=== PATIENT | male | born 1970 | race Caucasian/White ===

== ENCOUNTER → 2024-07-25 14:11 | Outpatient (REF) | payer OTHER, SELFPAY | LOC: RAD 14:11 | PROVIDERS: ATTENDING PHYSICIAN Ophthalmology; FAMILY PHYSICIAN Student in an Organized Health Care Education/Training Program | DX: H35.82 Retinal ischemia (principal) | CPT/HCPCS: 93880 ==

== ENCOUNTER → 2024-09-15 09:32 | Outpatient (REF) | payer OTHER, SELFPAY | LOC: RAD 09:32 | PROVIDERS: ATTENDING PHYSICIAN Surgery Vascular Surgery; FAMILY PHYSICIAN Student in an Organized Health Care Education/Training Program | DX: I65.23 Occlusion and stenosis of bilateral carotid arteries (principal) | CPT/HCPCS: 70496; 70498; Q9967 ==

== ENCOUNTER → 2024-11-24 08:49 | Outpatient (REF) | payer OTHER, SELFPAY | LOC: HWRCS 08:49 | PROVIDERS: ATTENDING PHYSICIAN Internal Medicine Cardiovascular Disease; FAMILY PHYSICIAN Student in an Organized Health Care Education/Training Program | DX: I65.22 Occlusion and stenosis of left carotid artery (principal); E78.00 Pure hypercholesterolemia, unspecified; I74.9 Embolism and thrombosis of unspecified artery; F17.200 Nicotine dependence, unspecified, uncomplicated | CPT/HCPCS: 93306 ==

== ENCOUNTER 2024-12-02 01:14 | Observation (INO) | payer OTHER, SELFPAY ==
[2024-12-01 19:50] VITALS: BP 149/99
[2024-12-01 20:04] VITALS: BP 171/100
[2024-12-01 20:22] LABS: % Basophils 0.6 % (0-2); % Eosinophils 2.9 % (0-6); % Immature Granulocytes 0.4 % (0-0.5); % Lymphocytes 24.4 % (20.5-51.1); % Monocytes 5.8 % (1.7-9.3); % Neutrophils 65.9 % (42.2-75.2); Absolute Basophils 0.1 10^3/uL (0-0.2); Absolute Eosinophils 0.4 10^3/uL (0-0.7); Absolute Immature Granulocytes 0.1 10^3/uL (0-0.05); Absolute Lymphocytes 3.3 10^3/uL (1.2-3.4); Absolute Monocytes 0.8 10^3/uL (0.1-0.6); Absolute Neutrophils 8.8 10^3/uL (1.4-6.5); Hematocrit 43.7 % (39.0-52.0); Hemoglobin 15.2 g/dL (13.0-18.0); Mean Corp Hgb Conc. 34.8 g/dL (33.0-37.0); Mean Corpuscular Hgb 31.5 pg (27.0-31.0); Mean Corpuscular Volume 90.7 fL (80.0-94.0); Mean Platelet Volume 9.6 fL (7.4-10.4); Nucleated Red Blood Cells % 0 % (-); Platelet Count 270 10^3/uL (130-400); Red Blood Cell Count 4.82 10^6/uL (4.70-6.10); Red Cell Dist. Width 12.1 % (11.5-14.5); White Blood Cell Count 13.4 10^3/uL (4.8-10.8)
[2024-12-01 20:33] LABS: INR 0.98; PT 13.3 Sec (11.4-14.6)
[2024-12-01 20:34] LABS: APTT 26.5 Sec (23.4-35.0)
[2024-12-01 20:45] LABS: Troponin I 0.013 ng/ml
[2024-12-01 20:48] LABS: ALT (SGPT) 27 U/L (0-50); AST (SGOT) 27 U/L (17-59); Albumin 4.9 g/dl (3.5-5.0); Alkaline Phosphatase 101 U/L (38-126); Blood Urea Nitrogen 15 mg/dl (9-20); Calcium 9.2 mg/dl (8.4-10.2); Carbon Dioxide 24 mmol/L (22-30); Chloride 102 mmol/L (98-107); Estimated Creatinine Clearance 107 ml/min; Glucose 123 mg/dl (70-99); Sodium 136 mmol/L (135-145); Total Bilirubin 0.7 mg/dl (0.2-1.3); Total Protein 7.6 g/dl (6.3-8.2); eGFR > 60.00
[2024-12-01 21:00] VITALS: BP 147/89
[2024-12-01 22:00] VITALS: BP 148/87
[2024-12-01 22:23] VITALS: BP 149/84
--- NOTE | 2024-12-01 22:44 | ED.CVA ---
History of Present Illness
General
Chief Complaint: CVA/TIA Symptoms
Time Seen by Provider: 12/01/24 20:02
Onset of Stroke Symptoms
Onset of symptoms known: Yes
Date of onset of symptoms: 12/01/24
Time of onset of symptoms: 19:00
History of Present Illness
History of Present Illness:
54-year-old male with prior history of suspected TIA presenting for complete motor loss in the left lower extremity prior to arrival. Patient reports he was sitting on the couch and his leg went ' 'for a few minutes. He was unable to lift his
leg up. Symptoms since resolved. Reports that he had similar symptoms about a year ago with his right upper extremity, had a relatively unremarkable workup with the exception of blockage to the left carotid. Denies any present numbness or
tingling to his leg. Denies visual changes. Denies any changes in speech. Denies any recent fall or injury. Denies additional acute medical complaints
Past History
Past History
ED Past Medical History: None
ED Past Surgical History: None
Social History
Tobacco: Non-smoker
Personal:
Phy Exam
Physical Exam
Physical Exam:
General: Well-appearing, no clinical signs of dehydration, nontoxic and in no acute distress
HEENT: protecting airway
Neck: appears supple
CV: Normal heart rate, regular rhythm
Resp: No accessory muscle use, no increased work of breathing, lungs clear to auscultation bilaterally
Abd: Soft and non-distended, no tenderness to palpation
Extremities: No deformities, no swelling, no erythema. Palpable pulses intact to lower extremity. Sensation intact.
Neuro: alert, no focal neurologic deficit
: deferred
Rectal: deferred
Psych: Normal affect
Skin: Intact
NIH Stroke Score
Level of Consciousness: 0 - Alert
LOC questions: 0-Answers both correctly
LOC Commands: 0-Performs both correctly
Best Gaze: 0-Normal
Visual Romero: 0=Normal, no visual loss
Facial palsy: 0=Normal, symmetrical
Motor - Right Arm: 0=No drift 10 seconds
Motor - Left Arm: 0=No drift 10 seconds
Motor - Right Le-No drift 5 seconds
Motor - Left Le-No drift 5 seconds
Limb Ataxia: 0-Absent
Sensation: 0-Normal
Best Language: 0-No aphasia
Dysarthria: 0-Normal
Extinction and Inattention: 0-No abnormality
Total Score:: 0
Course
Orders/Labs/Results
Orders:
Orders
12/01/24 20:09
Cardiac Monitoring- Treatment ONCE
IV Insert/Care/Rem.- Treatment PRN
Complete Blood Count/With Diff Urgent
Comprehensive Metabolic Panel Urgent
PTT Urgent
Prothrombin Time Urgent
Troponin I Urgent
Vital Signs As Directed
Frequency: Other
Weight As Directed
Frequency: Once
Comment: ZERO STRETCHER SCALE FOR ACCURATE WEIGHT
12/01/24 21:23
CT Head & Neck Angio W/wo IV Urgent
Comment:
Reason For Exam: L-leg weaknes, hx carotid blockage
12/01/24 22:52
Electrocardiogram (*1) Stat
Reason for Study: Other
Other Reason for Exam: stroke
12/01/24 23:02
Aspirin 325 mg PO NOW STA
Clopidogrel Bisulfate [Plavix] 75 mg PO NOW STA
12/01/24 23:08
EKG- Treatment ONCE
12/02/24 00:50
Admit/Transfer Patient As Directed
Co-Sign Provider:
Level of Care: Observation services
Assign to:: Telemetry
Physician / Group: [place]
Diagnosis: LLE Weakness
Reason for Telemetry: CVA/TIA
Date to Stop Telemetry: 12/05/24
Time to Stop Telemetry: 11:00
PRN Pain Medication Management As Directed
May give lesser potent ordered pain med per pt: Yes
preference::
Protocol:: Medication orders for pain may be administered in a
manner that supports deferring to patient preference
when the pt is:
- Requesting an ordered lesser potent pain medication.
Least to most potent pain medications are defined
as: acetaminophen < NSAID < tramadol < opioids
(morphine, oxycodone, hydromorphone).
- Requesting a lesser dose of the same medication IF
ORDERED.
- Requesting a less intrusive route of administration
if both routes are prescribed by the provider (PO <
IV).
12/02/24 00:51
Code Status As Directed
Resuscitation Status: Full Code
12/02/24 01:32
Acetaminophen [Tylenol] 650 mg PO Q4HPRN PRN
12/02/24 01:32
Consult Notification Routine
Specialty to Notify: Neurology
Date consulting provider notified: 12/02/24
Time consulting provider notified: 08:18
Notified:: Provider
Comment: LILA KYLE
NEUROLOGY CONSULT Routine
Consulting Provider: Dionisio Kyle
Was physician already notified: No
Reason for consult: LLE Weakness
Activity As Directed
Activity Level: Ambulate
With Assistance
EKG with chest pain [ECG as needed] As Directed
ECG as needed for:: Chest Pain
I/O [Intake/ Output] As Directed
Frequency: Per unit guidelines
Neurological Checks As Directed
Frequency: q4h
Orthostatic Vital Signs As Directed
Orthostatic VS Frequency: BID
Pneumatic Compression Sleeves As Directed
Type: Knee high
Vital Signs As Directed
Frequency: Per unit guidelines
Oxygen Therapy [O2 Therapy] [RESP] Routine
Titrate/Wean O2 to maintain O2 sat greater than (%): 94
Ot Eval And Treat Routine
PT Consult [Pt Eval And Treat] Routine
Activity Level: Ambulate
With Assistance
DX Deep Vein Thrombosis Video Routine
12/02/24 05:19
Basic Metabolic Panel IN AM
Cardiovascular Evaluation IN AM
Complete Blood Count/No Diff IN AM
Glycohemoglobin (HgbA1c) Routine
TSH Reflex To Free T4 Routine
12/02/24 Breakfast
Regular
At Your Request: Full Participation
Does patient need a safe tray?: No
MR Brain Without Contrast IN AM
Comment:
Reason For Exam: CVA / TIA
Recent pill cam endoscopy?: No
MR Cervical Spine Without IN AM
Comment:
Reason For Exam: Cervical Stenosis
Recent pill cam endoscopy?: No
12/02/24 08:00
Aspirin Chewable [Low Strength Aspirin] 81 mg PO DAILY
Clopidogrel Bisulfate [Plavix] 75 mg PO DAILY
12/02/24 22:00
Atorvastatin [Lipitor] 20 mg PO HS
12/05/24 11:00
DC Protocol for Telemetry ONCE
Abnormal Lab Results
12/01/24
20:09
WBC 13.4 H 10^3/uL
(4.8-10.8)
MCH 31.5 H pg
(27.0-31.0)
Abs Immat Gran (auto) 0.1 H 10^3/uL
(0-0.05)
Absolute Neuts (auto) 8.8 H 10^3/uL
(1.4-6.5)
Absolute Monos (auto) 0.8 H 10^3/uL
(0.1-0.6)
Glucose 123 H mg/dl
(70-99)
12/01/24 20:09
12/01/24 20:09
Vital Signs
Initial and Last Documented VS:
Initial Vital Signs
Temp Pulse Resp BP Pulse Ox
98.5 F 93 18 149/99 100
12/01/24 19:50 12/01/24 19:50 12/01/24 19:50 12/01/24 19:50 12/01/24 19:50
Last Documented Vital Signs
Temp Pulse Resp BP Pulse Ox
97.7 F 72 19 130/72 98
12/02/24 10:45 12/02/24 10:45 12/02/24 10:45 12/02/24 10:45 12/02/24 10:45
MDM/Problems Addressed
MDM/Problems Addressed:
54-year-old male presenting for complete loss of motor to left lower extremity, which last for few minutes. Symptoms since resolved. Vital signs arrival significant for mild hypertension.
On exam, patient is resting comfortably, no acute distress. Patient evaluated initially upon arrival into the emergency department. In a stroke scale of 0. Concern for TIA given motor loss of left lower extremity, unilateral. Notes history of
carotid occlusion in the past. Did review ultrasound from 07/25/2024, shows occluded left internal carotid. Unclear if this is contributing to patient's symptoms. No indication for tPA given resolution of symptoms, no significant present
neurologic deficit. No neurovascular compromise to the left lower extremity without concern for claudication. No tenderness to the back without concern for central spinal canal issue. Plan for CT/CTA given concern for vascular issues. Will
obtain laboratory analysis and continue to closely monitor.
23:00 -CT brain and CT angio without findings of acute infarct. There is mention of known complete occlusion of the left internal carotid artery with collaterals, as well as additional atherosclerotic findings. Given neurologic symptoms with
vascular findings, feel patient warrants admission for MRI, initiation of aspirin and Plavix, possible vascular consultation. CT neck noted to have cervical disc disease. Patient without any neck pain or upper extremity symptoms. Less suspicious for
acute spinal etiology to symptoms.
*EKG
Interpreted by ED Provider?: Yes
EKG Intrepretation Date: 12/01/24
EKG Intrepretation Time: 23:14
Interpretation: abnormal
Comparison EKG: no comparison EKG present
Heart Rate: 74
Rate: normal
Rhythm: sinus
[place]: normal axis
Interval: normal interval
QRS Pattern: normal QRS
Ischemia: non-specific ST changes
*Critical Care Note
Total Time (30-74mins, 75-104mins- exclusive of procedures): Not Applicable
ED Attending Note
-
Portions of this chart may have been created with voice recognition software.� Occasional wrong word or��sound alike� substitutions may have occurred due to the inherent limitations of voice recognition software.
Discharge Plan
Departure
Patient Disposition: Admit
Date of Disposition: 12/01/24
Time of Disposition: 23:09
Presentation/result/management discussed w/ accepting MD/DO: Hospitalist
Condition: Fair
Discharge Problem:
Stroke-like symptoms, TIA (transient ischemic attack)
Interventions
Interventions:
*Risk Screen - Suicide Last Done: 12/02/24 01:42
*General Assessment Last Done: 12/01/24 19:50
*Neglect/Abuse Screening Last Done: 12/02/24 01:25
ED- Fall Risk Assessment Last Done: 12/01/24 20:10
*ED COVID-19 Vaccine History Last Done: 12/01/24 19:50
*Nursing Disposition Last Done: 12/02/24 01:25
ED- Pulmonary Assessment Last Done: 12/01/24 20:10
ED- Neurological Assessment Last Done: 12/01/24 20:07
ED- Cardiac Assessment Last Done: 12/01/24 20:10
ED Swallowing Screen Last Done: 12/01/24 20:10
Discharge Date and Time
Discharge Date/Time: 12/02/24 01:25
[2024-12-01 23:00] VITALS: BP 154/87
[2024-12-01] MEDS: ASPIRIN 325 MG PO (23:19)
[2024-12-01] MEDS: PLAVIX 75 MG PO (23:19)
[2024-12-02] VITALS (10 sets, daily range): BP systolic 112–176; BP diastolic 70–96; PULSE 70–95; O2SAT 98; BMI 29.1
--- NOTE | 2024-12-02 00:54 | HPS.HSE ---
Family Physician
-
Family Physician: Filipe Jama, DO
Chief Complaint
-
LLE Numbness / Weakness
History of Present Illness
Patient is a 54y M with PMH significant for L carotid occlusion who presents to ED complaining of LLE weakness and tingling. Patient states that he was standing for a time in the kitchen this evening preparing dinner. He sat down afterwards and
noted weakness and 'pins and needles' in the LLE. He states that he was unable to lift his foot from the floor. The symptoms lasted for several minutes and then resolved. He currently feels well and has no complaints.
Patient was found to have complete occlusion of the proximal L ICA in 09/2024. He has been evaluated by Vascular Surgery and Cardiology. Echo was unremarkable. Hypercoagulable work-up is pending.
Medical History
Past Medical History
Past Medical History: Reports Other
Additional Past Medical History:
Left Carotid Occlusion
Dyslipidemia
Past Surgical History: Reports None
Social History
Tobacco: Smoker (Current every day smoker. > 20 pack years total use.)
Alcohol: Occasional
Drug: None
Family History
Family History: Not pertinent
Allergies / Home Medications
Allergies reflects when Allergies were last updated in [employer].
Home Medications with original date entered in [employer]
Allergy/Medication List:
Allergies
Allergy/AdvReac Type Severity Reaction Status Date / Time
No Known Allergies Allergy Verified 12/01/24 19:53
Home Medications
acetaminophen 500 mg tablet (Tylenol Extra Strength) 500 mg PO Q6HPRN PRN mild pain/headache 12/01/24
atorvastatin 20 mg tablet 20 mg PO HS 12/01/24
therapeutic multivitamin 1 tab PO DAILY 12/01/24
Review of Systems
-
History Source: Patient
A 12 point ROS was completed and negative except as noted: Yes
Constitutional: Denies Fever or Chills
Respiratory: Denies Cough or Trouble Breathing
Cardiac: Denies Chest Pain or Palpitations
Abdomen/GI: Denies Abdominal Pain, Nausea, Vomiting or Diarrhea
: Denies Dysuria or Frequency
Musculoskeletal: Denies Joint Pain or Edema
Neurological: Reports Weakness and Numbness; Denies Dizzy or Headache
Psych: Denies Depression or Anxiety
Physical Exam
Vital Signs
Vital Signs
Temp Pulse Resp BP Pulse Ox
98.5 F 77 11 154/87 97
12/01/24 19:50 12/01/24 23:00 12/01/24 23:00 12/01/24 23:00 12/01/24 23:00
Physical Exam
General: Other (54y M in no acute distress.)
HEENT: Moist mucous membranes and PERRLA
Respiratory: Clear; No Wheezes, Rales or Rhonchi
Cardiac: S1/S2 and Regular Rhythm; No Murmur
GI: Soft, Non Tender, Non Distended and Normal Bowel Sounds
Musculoskeletal: No Clubbing, No Cyanosis and No Edema
Neuro: AO x 3 and Nonfocal/grossly intact
Laboratory Results
-
12/01/24 20:09
12/01/24 20:09
Laboratory Results
PT 13.3 Sec (11.4-14.6) 12/01/24 20:09
INR 0.98 12/01/24 20:09
APTT 26.5 Sec (23.4-35.0) 12/01/24 20:09
Total Bilirubin 0.7 mg/dl (0.2-1.3) 12/01/24 20:09
AST 27 U/L (17-59) 12/01/24 20:09
ALT 27 U/L (0-50) 12/01/24 20:09
Alkaline Phosphatase 101 U/L (38-126) 12/01/24 20:09
Troponin I 0.013 ng/ml 12/01/24 20:09
Impression/Plan
-
A/P: Patient is a 54y M with PMH significant for known / chronic L ICA occlusion who presents to ED complaining of LLE weakness and paresthesias.
LLE Weakness
Left ICA Occlusion (chronic)
Cervical DDD
- Observe overnight for further evaluation and treatment.
- Currently symptom-free and exam is unremarkable.
- CT done this evening with no changes from recent imaging.
- Note cervical spine findings - especially cord compression from C4 - C7.
- MRI brain and MRI C-spine in the AM.
- Continue DAPT for now.
- Neurology evaluation in the AM for additional recommendations.
- Follow neuro exam for any changes.
DVT Prophylaxis: SCDs
Code Status: Full
--- NOTE | 2024-12-02 02:34 | PTCARENOTE ---
Pt received from ER [id number] able to make his needs known.Pt states he doesn't have any more symptoms with his left leg .NIH-0.CORRECTIONAL OFFICER CAPTAIN sustainable design consultant made aware of it & NIH ordered for pt.Pt refused SCD CORRECTIONAL OFFICER CAPTAIN aware.Pt has a monitor on his mid chest POA from home
which is used for outpatient monitoring. Pt asymptomatic at this time.Plan of care continued.Call franks in reach.
[2024-12-02 06:02] LABS: Hematocrit 41.5 % (39.0-52.0); Hemoglobin 14.6 g/dL (13.0-18.0); Mean Corp Hgb Conc. 35.2 g/dL (33.0-37.0); Mean Corpuscular Hgb 31.9 pg (27.0-31.0); Mean Corpuscular Volume 90.6 fL (80.0-94.0); Platelet Count 241 10^3/uL (130-400); Red Blood Cell Count 4.58 10^6/uL (4.70-6.10); Red Cell Dist. Width 12.1 % (11.5-14.5); White Blood Cell Count 16.2 10^3/uL (4.8-10.8)
[2024-12-02 06:24] LABS: Blood Urea Nitrogen 15 mg/dl (9-20); Calcium 9.2 mg/dl (8.4-10.2); Carbon Dioxide 25 mmol/L (22-30); Chloride 104 mmol/L (98-107); Estimated Creatinine Clearance 121 ml/min; Glucose 108 mg/dl (70-99); HDL Cholesterol 41 mg/dl; LDL Cholesterol, Calculated 102 mg/dl; Potassium 4.2 mmol/L (3.5-5.1); Sodium 138 mmol/L (135-145); Total Cholesterol 175 mg/dl (50-199); Triglyceride 164 mg/dl (10-149); Very Low Density Lipoprotein 32 mg/dl (0-30); eGFR > 60.00
[2024-12-02 06:56] LABS: TSH Reflex To Free T4 0.88 uIU/ml (0.47-4.68)
[2024-12-02] MEDS: PLAVIX 75 MG PO (08:05)
[2024-12-02] MEDS: LOW STRENGTH ASPIRIN 81 MG PO (08:05)
--- NOTE | 2024-12-02 08:31 | PTOTSP ---
The patient is independent with mobility, demonstrating no deficits in regards to strength, balance, or coordination. No PT needs identified at this time, will sign off.
--- NOTE | 2024-12-02 08:52 | CON.NEURO4 ---
Addendum entered and electronically signed by Dionisio Ulloa MD 12/02/24 16:02:
Studies reviewed.
I have personally examined the patient. I reviewed and agree with the [employer] PRODUCTION ENGINEER's Note.
My addenda:
Awake, alert, interactive. No acute distress.
Speech intact. No tremor.
Extra-ocular movements grossly intact.
Facial movements full and symmetric. Hearing intact to normal conversational volume.
Normal UE movements bilaterally.
Neck: full ROM.
Chest: no dyspnea
Heart: no JVD
Ext: (-) Clubbing, (-) Cyanosis, (-) Edema
IMPRESSIONS/RECOMMENDATIONS:
Abrupt onset of left lower extremity weakness with known left sided internal carotid artery occlusion
Patient has significant risk factor for thromboembolic disease in the form of smoking and absence of antiplatelet agents despite recent discovery of internal carotid artery occlusion
Request cardiology evaluation for transesophageal echocardiogram
Outpatient hypercoagulable evaluation
Consideration for implantable cardiac catheterization technician
Initiate and continue aspirin with clopidogrel for total of 21 days and then aspirin alone
Continue atorvastatin 80 mg daily
Patient not symptomatic enough for rehabilitation evaluations
Medical educational materials to be provided
DVT prophylaxis
Goal of normotension
D/W patient
Will continue to follow peripherally.
Original Note:
Consultation - Neurology 4
-
CONSULTING PHYSICIAN: Dr. Dionisio Ulloa
REFERRING PHYSICIAN: Dr. Shaun Hi
DICTATED BY: CAROL Shah
DATE/TIME OF REQUEST: 12/02/2024, 0132
DATE/TIME OF CONSULTATION: 12/02/2024, 0854
Reason for Consultation: LLE paresthesia, weakness
History of Present Illness:
This is a 54 year old right handed male patient with a past medical history of hyperlipidemia and know left ICA occlusion who presented to the ER with transient left leg paresthesias and weakness. He states he was in his usual state of health and
had been working on cabinet for about an hour and was resting on the couch for 5-10 minutes when he noted sensation of pins and needles LLE. He then stated he had significant weakness and was unable to left leg. This lasted about 5 minutes, then
resolved. He was brought to the ER by his and was able to ambulate into the ER. He denied any dizziness, headache, speech changes or vision changes. He denied any other extremity weakness. He denies any similar symptoms in the past. He
denies any neck or back pain. He had no recent trauma or falls. He denied any CP or SOB. He has been following with vascular surgery for left ICA occlusion, Dr. Malin. He has also had follow up with cardiology, Dr. Amaya, and is currently wearing
a cardiac catheterization technician. He does smoke about 1/2 pack of cigarettes a day.
Past Medical History
Past Medical History: Reports Other
Additional Past Medical History:
Left Carotid Occlusion
Dyslipidemia
Past Surgical History: fistulotomy
Social History
Tobacco: Smoker (Current every day smoker. > 20 pack years total use.), 1/2 ppd
Alcohol: Occasional
Drug: None
lives with family
Family History
Not pertinent
Allergies: See below
Home Medications: See below
Review of Symptoms:
Patient denies any fever, headache, chest pain, shortness of breath, GI or symptoms.
Vital Signs: See below
Physical Exam:
The patient is afebrile, heart sounds S1 and S2 are regular and chest is clear to auscultation bilaterally.
Neurologic Examination:
The patient is awake, alert and oriented x 3. He is able to follow commands and answer questions appropriately. There is no aphasia or dysarthria. On cranial nerve assessment, pupils are 3 mm bilateral, round and reactive to light and
accommodation. Visual landrum are full. Extraocular movements are intact. Facial sensations are intact and bilaterally symmetrical, there is no facial asymmetry. Hearing is intact bilaterally to normal conversation volume. Tongue palate and uvula are
midline. Sternocleidomastoid strengths are full bilaterally. Motor strengths are 5/5 bilateral upper and lower extremities on medical research [place] scale. There is no drift or involuntary movement noted. Deep tendon reflexes are 2+ bilateral
upper and lower extremities and Babinski is absent bilaterally. Sensations of light touch, temperature and vibration are intact and bilaterally symmetrical. There was no extinction noted on double simultaneous stimulation. Coordination is intact by
finger to nose bilaterally.
Lab Results: see below
Neuro Imaging:
NECK CTA (12/01/2024):
1. CHRONIC COMPLETE OCCLUSION of the proximal left ICA.
2. No CTA evidence for stenosis or occlusion in the right ICA.
3. No CTA evidence for stenosis or occlusion of either vertebral artery.
4. Moderate multilevel discogenic degenerative disease in the cervical spine with disc-osteophyte complex causing spinal cord compression, central canal stenosis, and neural foraminal narrowing (moderate spinal cord compression at C6/C7 and severe
left neural foraminal narrowing at C5/C6).
HEAD CTA (12/01/2024):
1. Occlusion of the proximal intracranial left ICA with collateral blood supply to the terminal communicating segment of the left ICA through anterior and posterior communicating arteries.
2. No CTA evidence for stenosis or occlusion in the middle or anterior cerebral arteries.
3. 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
4. Less than 50% diameter stenosis in the right intracranial ICA secondary to soft and calcific atherosclerotic plaque.
5. No CT evidence for acute intracranial hemorrhage or transcortical infarct.
6. Mild paranasal sinus mucosal disease.
Impression:
LUIS ALBERTO HERNANDEZ is a 54 year old M who has presented to the hospital with (symptoms/chief complaint).
Differentials for the patient's presentation include
-TIA vs stroke
-cervical stenosis
Patient has the following risk factors for their symptoms: hyperlipidemia, known L ICA occlusion
IV Tenecteplase/IAT candidacy-resolution of symptoms
Recommendations:
-MRI brain
-MRI cervical spine
-reviewed CTA with L ICA proximal occlusion, reviewed outpatient vascular and cardiology records
-cardiology consultation
-DAPT x21 days then continue ASA
-Atorvastatin 80 mg
-no need for therapy evaluations
-continue to follow up with vascular surgery and cardiology as an outpatient
-DVT prophylaxis
-rest of medical management per primary car team
Discussed patient care with patient and neurologist Dr. Ulloa.
Medication and Allergies
Home Medications
Home Medications
�Medication �Instructions �Recorded
acetaminophen 500 mg tablet 500 mg PO Q6HPRN PRN mild 12/01/24
(Tylenol Extra Strength) pain/headache
atorvastatin 20 mg tablet 20 mg PO HS 12/01/24
therapeutic multivitamin 1 tab PO DAILY 12/01/24
Allergies
Allergies
Allergy/AdvReac Type Severity Reaction Status Date / Time
No Known Allergies Allergy Verified 12/01/24 19:53
Vital Signs / Labs
-
Vital Signs and Labs:
Temp Pulse Resp BP Pulse Ox
97.7 F 72 19 130/72 98
12/02/24 10:45 12/02/24 10:45 12/02/24 10:45 12/02/24 10:45 12/02/24 10:45
12/02/24 05:19
12/02/24 05:19
12/01/24 12/02/24
20:09 05:19
WBC 13.4 H 16.2 H
RBC 4.58 L
MCH 31.5 H 31.9 H
Abs Immat Gran (auto) 0.1 H
Absolute Neuts (auto) 8.8 H
Absolute Monos (auto) 0.8 H
Glucose 123 H 108 H
Hemoglobin A1c 6.0 H
Triglycerides 164 H
VLDL Cholesterol, Calc 32 H
--- NOTE | 2024-12-02 10:56 | W.PN.UPDATE ---
Addendum entered and electronically signed by Dany Lovelace MD 12/02/24 16:42:
LUISANA is neg
MRI brain is neg for acute infarct
MRI neck shows chronic DJD and stenosis but no acute findings plus pt is not symptomatic with cervical radiculopathy or neck pain.
[facility] Neuro - cleared from neuro for DC on DAPT and higher dose of statins.
White count elevation noted but pt denies
Any respirtory symptoms of sorethroat or cough or SOB
No fever or chills
No diarhea
No urinary symptoms
He had cold a couple of week ago , no respiratory symptoms
No prior hx of chronicity to it.
Unclear reason but no focal infective symptoms
Will check Flu and COVID and if neg dc home ;Pt advised to repeat blood work next week thro PCP .
Original Note:
Update Note
Progress Note Update
Seen by Dr. Hi this morning. Patient admitted for transient left leg [id number], numbness and weakness for 2 minutes which resolved never reoccurred. Patient currently nonfocal.
He was working on a cabinet lying down for getting up intermittently for 1 hour when this happened.
He has a cervical disc disease and spinal cord compression on the CTA but patient without any neck pain or any radiculopathy to the upper arms of the lower extremities prior to this event. He seems to be symptomatic from spinal disease. MRI of the
spine pending.
Of the transient nature and concern of TIA is getting worked up for stroke. MRI of the brain pending. With the left carotid occlusion neurology wants to make sure no cardiac emboli. Keeping n.p.o. for a LUISANA today.
Pt on DAPT now.
Discussed with neurology.
--- NOTE | 2024-12-02 14:17 | CON.CAR ---
Consultation
Consultation Request
Date/Time Consultation Requested: 12/02/2024, 1130am
Date/Time Consultation Performed: 12/02/2024, 12pm
Requesting Provider: Radu
Performing Provider: Kashif
Reason for Consultation: Evaluation for TIA
Medical History
-
Chief Complaint: paresthesia
History of Present Illness:
54 yo male with PMH of left carotid occlusion, hyperlipidemia presented to ED with complaint of LLE weakness and tingling. No chest pain or SOB. Symptoms have since resolved.
We are consulted for evaluation for cardiac source of embolus in setting of suspected TIA.
Past Medical History
Past Medical History: Hypercholesterolemia and Other (left carotid occlusion)
Past Surgical History: None
Social History
Tobacco: Smoker
Family History
Family History: Early CAD (none)
Allergies / Home Medications
Allergy/AdvReac Type Severity Reaction Status Date / Time
No Known Allergies Allergy Verified 12/01/24 19:53
�Medication �Instructions �Recorded �Confirmed �Type
acetaminophen 500 mg tablet 500 mg PO Q6HPRN PRN mild 12/01/24 12/01/24 History
(Tylenol Extra Strength) pain/headache
atorvastatin 20 mg tablet 20 mg PO HS 12/01/24 12/01/24 History
therapeutic multivitamin 1 tab PO DAILY 12/01/24 12/01/24 History
Review of Systems
-
History Source: Patient
All other systems: Negative unless noted
Neurological: Weakness and Numbness
Physical Exam
Vital Signs
Temp Pulse Resp BP Pulse Ox
97.7 F 72 19 130/72 98
12/02/24 11:00 12/02/24 11:00 12/02/24 11:00 12/02/24 11:00 12/02/24 11:00
Lab Results
12/02/24 05:19
12/02/24 05:19
Troponin I 0.013 ng/ml 12/01/24 20:09
Physical Exam
General: Well Developed, Well Nourished and No Apparent Distress
HEENT: Normocephalic and Anicteric
Respiratory: Clear and Non Labored Respirations
Cardiac: S1/S2, Regular Rhythm (normal), Murmur (none) and Peripheral Edema (none)
Musculoskeletal: No Clubbing, No Cyanosis and No Edema
Skin: Warm and Dry
Neuro: AO x 3
Psych: Calm
Impression / Plan
-
54 yo male with PMH of left carotid occlusion, hyperlipidemia presented to ED with complaint of LLE weakness and tingling. We are consulted for evaluation for cardiac source of embolus in setting of suspected TIA.
# Suspected TIA
-LUISANA to eval for cardioembolic source today
-DAPT per neuro
-he is currently wearing a 2 week monitor
# Occluded left carotid artery
-DAPT as above
-atorvastatin for lipid management, goal LDL under 55
# Tobacco abuse
-cessation recommended
Data Reviewed
-
EKG: Tracing Personally Visualized and interpreted (NSR, nl EKG)
MRI: Report Reviewed by me (no evidence of CVA)
Labs: Labs Reviewed by me
--- NOTE | 2024-12-02 16:12 | CM ---
Alert awake oriented patient who lives with his Kimberly who lives in a 2 story home with 0 step to enter and 14 steps to bed and bathroom. He is independent in driving and in all activities of daily living.He was offered VN he declined
need.Observation letter given explained Copy given Pt did not sign letter.No adaptive devices.
No VN hx / No SNF history
Pharmacy [facility]
PCP DR Gonzalez
PLAN Home Declined VN
[2024-12-02 17:36] LABS: COVID-19 Antigen Negative (Negative)
== END 2024-12-02 18:59 | disposition home or self-care (01) ==
LOC: 4 EAST ACU 01:14
PROVIDERS: ADMITTING PHYSICIAN Hospitalist; ATTENDING PHYSICIAN Internal Medicine; CONSULT PHYSICIAN Internal Medicine; CONSULT PHYSICIAN Psychiatry & Neurology Neurology; EMERGENCY PHYSICIAN Student in an Organized Health Care Education/Training Program; FAMILY PHYSICIAN Student in an Organized Health Care Education/Training Program
DX: M48.02 Spinal stenosis, cervical region (principal); R53.1 Weakness; I10 Essential (primary) hypertension; I65.22 Occlusion and stenosis of left carotid artery; F17.210 Nicotine dependence, cigarettes, uncomplicated; M50.021 Cervical disc disorder at C4-C5 level with myelopathy; M50.022 Cervical disc disorder at C5-C6 level with myelopathy; M50.023 Cervical disc disorder at C6-C7 level with myelopathy; M25.78 Osteophyte, vertebrae; I48.91 Unspecified atrial fibrillation; E78.00 Pure hypercholesterolemia, unspecified; Z79.02 Long term (current) use of antithrombotics/antiplatelets; Z79.82 Long term (current) use of aspirin; Z11.52 Encounter for screening for COVID-19
CPT/HCPCS: 70496; 70498; 70551; 72141; 80048; 80053; 80061; 83036; 84443; 84484; 85025; 85027; 85610; 85730; 87502; 87811; 93005; 93312; 93320; 93325; 97163; 97166; 99285; 99406; G0378; Q9967

== ENCOUNTER → 2024-12-26 06:41 | Outpatient (REF) | payer OTHER, SELFPAY | LOC: RCS 06:41 | PROVIDERS: ATTENDING PHYSICIAN Internal Medicine Cardiovascular Disease; FAMILY PHYSICIAN Student in an Organized Health Care Education/Training Program | DX: I47.29 Other ventricular tachycardia (principal); R00.2 Palpitations; I65.22 Occlusion and stenosis of left carotid artery | CPT/HCPCS: 78452; 93017; A9500 ==

== ENCOUNTER 2024-12-30 09:07 | Day surgery (SDC) | payer OTHER, SELFPAY ==
[2024-12-30] VITALS (12 sets, daily range): BP systolic 108–138; BP diastolic 69–81; BMI 29.6
[2024-12-30] MEDS: NSS 305 ML IV (10:20)
[2024-12-30 11:35] LABS: ACT-LR - POC 339 Seconds (116-155)
[2024-12-30 12:08] LABS: ACT-LR - POC 316 Seconds (116-155)
[2024-12-30] MEDS: NSS 1000 IV (14:17)
--- NOTE | 2024-12-30 16:48 | W.PN.UPDATE ---
Update Note
Progress Note Update
54 yo WM s/p PCI RCA x1 (Same day). He denies cp, sob, graham diet, voiding, R rad site c/d/i no HT, EKG SR no ST changes. He will be on DAPT ASA/Plavix. He will continue atorvastatin and metoprolol. Activity restrictions reviewed. [facility] c/s.
He will f/u Dr. Amaya in 2 weeks. He is for d/c home after 530pm.
--- NOTE | 2024-12-30 17:11 | ITS.CL.PN ---
Addendum entered and electronically signed by Benny Pelayo MD 01/04/25 10:40:
Section should read:
PROCEDURE(S)
1. left heart catheterization
2. coronary angiography
3. IVUS LCx
4. IVUS LAD
5. IVUS RCA
6. PCI with JOSEFINA to RCA
Original Note:
[employer] - Procedure Note
Procedure
Procedure Note:
CARDIAC CATHETERIZATION REPORT
Date of Procedure: 12/30/2024
Referring: Dr. Blaine Amaya MD
Indication: NSVT, positive cardiac stress test
PROCEDURE(S)
1. left heart catheterization
2. coronary angiography
3. iFR LCx
4. iFR LAD
5. iFR RCA
6. PCI with JOSEFINA to RCA
ACCESS: 6F right radial artery (closure: radial band)
CATHETERS
1. 6F JR4
2. 6F JL3.5
3. 6F XB3.5 guide catheter
4. 6F JR4 guide catheter
MODERATE SEDATION: 102 minutes of moderate sedation was utilized. An independent medical delivery driver was present to assist with and help manage the patient's level of consciousness and physiologic status.
ULTRASOUND GUIDED VASCULAR ACCESS (right radial artery): Ultrasound was utilized for vascular access. The vessel was visualized under ultrasound and noted to be patent. An image of the vessel was stored permanently in the patient's medical record.
Under direct ultrasound guidance, vascular access was obtained using a modified Seldinger technique and a 6 Welsh sheath was placed.
HEMODYNAMIC DATA
LV 102/5 (EDP 12) mmHg
AO 108/53 (mean 81) mmHg
CORONARY ANGIOGRAPHY
Dominance: Right
LM: Large vessel with a 40% distal stenosis that was further evaluated with IVUS.
LAD: Large vessel giving rise to a moderate caliber D1 and small D2. There is mild nonobstructive disease.
LCx: Large vessel giving rise to a single large branching OM. There are mild luminal irregularities.
RCA: Large vessel giving rise to a moderate caliber RPDA and several RPL branches. There is a hazy ulcerated 90% stenosis in the mid RCA and otherwise mild luminal irregularities. There is TAZ II flow to the distal branches.
IVUS of LCx
Heparin was given to achieve ACT greater than 300 seconds. The left main was engaged with a XB3.5 guide catheter and a Runthrough wire placed in the distal left circumflex. An [place] [facility] IVUS catheter was advanced to the left main and ringdown
performed. The catheter was advanced to the mid LCx and pullback performed. MLA was measured in multiple locations between 6.5 and 7.5 mm�.
IVUS of LAD
The Runthrough wire was redirected to the mid LAD. The IVUS catheter was advanced to the mid LAD and pullback performed. MLA was measured in multiple locations between 6.5 and 7.5 mm�. Angiography of the left system was performed and was unchanged.
The wire and guide were removed.
IVUS-guided PCI with JOSEFINA to RCA
The right coronary artery was engaged with a 6 Welsh JR4 guide catheter and the Runthrough wire placed in the distal RPDA. Initial lesion preparation was performed with a 2.5 x 12 mm semicompliant balloon with full expansion. A 3.0 x 30 mm [place]
frontier drug-eluting stent was delivered and deployed at 16 jeff with full expansion. IVUS was performed demonstrating a distal reference vessel diameter of 3.25 mm and proximal reference vessel diameter of 3.75 mm. Post dilation was thus
performed with a 3.25 mm NC balloon to high pressure from the distal stent edge to the mid stent and with a 3.75 mm NC balloon from the mid stent to the proximal edge with full expansion noted. IVUS was repeated and demonstrated full stent
expansion, apposition and no edge dissections. Final angiographic result was outstanding. The wire and guide were removed and a TR band placed. The patient was loaded with 600 mg of Plavix and taken to the cath recovery unit. Family was updated.
RADIATION: dose 1125.16 mGy; DAP 62.8013 Gy*cm2; fluoroscopy time 16.2 min
CONCLUSIONS
1. Coronary artery disease as described with severe mid RCA stenosis and moderate distal left main stenosis assessed further by IVUS and found to have MLA greater than 6 mm� (non-significant).
2. Successful IVUS guided and optimized PCI of the mid RCA with 3.0 x 30 mm [place] JOSEFINA postdilated distally to high-pressure with a 3.25 mm balloon and proximally to high-pressure with a 3.75 mm NC balloon.
RECOMMENDATIONS
1. expectant management after cardiac catheterization via right radial approach
2. DAPT with aspirin and Plavix for at least 6 months, then aspirin monotherapy ongoing
2. aggressive secondary prevention of coronary artery disease, goal LDL<55
3. continue beta-ricky with plan for outpatient repeat twisting press operator to assess NSVT burden
Copy to: Dr. Blaine Amaya MD (road train driver); Dr. Filipe Jama DO (PCP)
Signed: Benny Pelayo MD, PhD
== END 2024-12-30 17:30 | disposition home or self-care (01) ==
LOC: CATH 09:07
PROVIDERS: ATTENDING PHYSICIAN Student in an Organized Health Care Education/Training Program; FAMILY PHYSICIAN Student in an Organized Health Care Education/Training Program; OTHER PHYSICIAN Internal Medicine Cardiovascular Disease
DX: I25.10 Atherosclerotic heart disease of native coronary artery without angina pectoris (principal); I47.20 Ventricular tachycardia, unspecified; E78.5 Hyperlipidemia, unspecified; F17.210 Nicotine dependence, cigarettes, uncomplicated
CPT/HCPCS: 92978; 92979 ×2; 76937; 85347; 93005; 93458; 99152; 99153; C1725; C1753; C1874; C1887; C1894; C9600; Q9967

== ENCOUNTER → 2025-09-27 08:45 | Outpatient (REF) | payer OTHER, SELFPAY | LOC: RAD 08:45 | PROVIDERS: ATTENDING PHYSICIAN Surgery Vascular Surgery; FAMILY PHYSICIAN Student in an Organized Health Care Education/Training Program | DX: I65.22 Occlusion and stenosis of left carotid artery (principal) | CPT/HCPCS: 93880 ==